=== PATIENT | female | born 1970 | race Two or more races ===

== ENCOUNTER 2024-09-23 10:24 | Emergency (ER) | payer OTHER ==
[~2024-09-23] VITALS: Ht 165.1 cm; Wt 81.6 kg
== END 2024-09-23 13:32 | disposition home or self-care (01) ==
LOC: ER 10:26
DX: S61.421A Laceration with foreign body of right hand, initial encounter (principal); W45.8XXA Other foreign body or object entering through skin, initial encounter; Y93.89 Activity, other specified; Y92.89 Other specified places as the place of occurrence of the external cause